=== PATIENT | male | born 1970 | race Caucasian/White ===

== ENCOUNTER 2017-09-19 07:28 | Emergency (ER) | payer BC, OTHER ==
[2017-09-19 07:37] VITALS: BP 140/74; PULSE 64; TEMP 98.3; BMI 27.8
[2017-09-19] MEDS ORDERED: DIPHTH,PERTUSS(ACELL),TET 0.5 ML DISP.SYRIN IM ONE (08:00)
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
[2017-09-19 08:34] LABS: BASO % 0.8 % (0-2.0); EOS % 0.6 % (0-4.5); HEMATOCRIT 47.4 % (35.4-49); HEMOGLOBIN 16.9 GM/dL (11.7-16.9); LYMPH % 27.5 % (8-40); MCH 31.5 pg (25.7-33.7); MCHC 35.7 g/dl (32.0-35.9); MEAN CELL VOLUME 88.4 fl (80-96); MEAN PLT VOLUME 10.1 fl (7.5-11.1); MONO % 10.9 % (3.8-10.2); NEUT % 60.2 % (42.8-82.8); PLATELET COUNT 169 K/MM3 (134-434); RBC 5.36 M/mm3 (4.00-5.60); RDW 13.7 % (11.9-15.9); WHITE BLOOD COUNT 6.4 K/mm3 (4.0-10.0)
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
[2017-09-19] MEDS ORDERED: ACETAMINOPHEN 325 MG TABLET (FP) PO ONE (08:38)
[2017-09-19 08:49] LABS: INR 1.02 (0.82-1.09); PROTHROMBIN TIME (PATIENT) 11.5 SEC (9.7-13.0)
[2017-09-19] MEDS ORDERED: ACETAMINOPHEN 325 MG TABLET (FP) ONE (08:56)
[2017-09-19 08:58] LABS: ALBUMIN 4.4 g/dl (3.4-5.0); ANION GAP 6 (8-16); BILIRUBIN,TOTAL 0.9 mg/dL (0.2-1.0); BLOOD UREA NITROGEN 18 mg/dL (7-18); CALCIUM 8.8 mg/dL (8.5-10.1); CHLORIDE 105 mmol/L (98-107); CO2 28 mmol/L (21-32); CREATININE 1.2 mg/dL (0.7-1.3); GLUCOSE,RANDOM 114 mg/dL (74-106); POTASSIUM 4.2 mmol/L (3.5-5.1); SGOT/AST 31 U/L (15-37); SGPT/ALT 56 U/L (12-78); SODIUM 139 mmol/L (136-145); TOT PROT 7.7 g/dl (6.4-8.2)
[2017-09-19 08:59] LABS: ALK PHOS 89 U/L (45-117)
== END 2017-09-19 13:07 | disposition home or self-care (01) ==
LOC: JER 07:28
PROC: 3E0234Z Introduction of Serum, Toxoid and Vaccine into Muscle, Percutaneous Approach (ICD-10-PCS; principal; 2017-09-19)
DX: Z04.1 Encounter for examination and observation following transport accident (principal); V23.4XXA Motorcycle driver injured in collision with car, pick-up truck or van in traffic accident, initial encounter; Y93.89 Activity, other specified; Y92.410 Unspecified street and highway as the place of occurrence of the external cause
CPT/HCPCS: 36415; 70450-TC; 71045-TC-FY; 73523-TC-FY; 73562-TC-RT-FY; 73590-TC-LT-FY; 73610-TC-LT-FY; 73630-TC-LT; 80053; 85025; 85610; 86850; 86900; 86901; 90715; 99282-25

== ENCOUNTER 2022-05-20 15:46 | Emergency (ER) | payer BC ==
[2022-05-20 16:07] VITALS: BP 133/85; PULSE 70; RESP 16; TEMP 98.1; BMI 30.5
[2022-05-20] MEDS ORDERED: KETOROLAC TROMETHAMINE 30 MG/1 ML VIAL IM ONE (17:27)
[2022-05-20] MEDS ORDERED: LIDOCAINE 5% TOPICAL PATCH TP ONE (17:27)
[2022-05-20] MEDS ORDERED: CYCLOBENZAPRINE HCL 10 MG TABLET (FP) PO ONE (17:27)
[2022-05-20] MEDS ORDERED: ACETAMINOPHEN 500 MG TABLET (FP) PO ONE (17:27)
[2022-05-20] MEDS ORDERED: CYCLOBENZAPRINE HCL 10 MG TABLET (FP) ONE (17:32)
[2022-05-20] MEDS ORDERED: ACETAMINOPHEN 500 MG TABLET (FP) ONE (17:32)
[2022-05-20] MEDS ORDERED: LIDOCAINE 5% TOPICAL PATCH ONE (17:32)
[2022-05-20] MEDS ORDERED: KETOROLAC TROMETHAMINE 30 MG/1 ML VIAL ONE (17:32)
[2022-05-21] MEDS ORDERED: LIDOCAINE PATCH REMOVAL MC SCH (06:00)
== END 2022-05-20 19:30 | disposition home or self-care (01) ==
LOC: JERFT 15:46 → JER 15:46 → JERFT 19:30
PROC: 3E023GC Introduction of Other Therapeutic Substance into Muscle, Percutaneous Approach (ICD-10-PCS; principal; 2022-05-20)
DX: M25.512 Pain in left shoulder (principal)
CPT/HCPCS: 99284-25